=== PATIENT | male | born 1960 | race Caucasian/White ===

== ENCOUNTER 2018-11-16 19:27 | Emergency (ER) | payer OTHER ==
--- NOTE | 2018-11-16 20:36 | RAD REPORT ---
EXAM DESCRIPTION: US - Extremity Venous Uni Ltd - 11/16/2018 8:22 pm CLINICAL HISTORY: PAIN Leg swelling and edema. COMPARISON: No comparisons FINDINGS: Left lower extremity venous system was interrogated with Doppler technique. Normal flow, c ompressibility and augmentation was noted. There is no DVT present. IMPRESSION: No evidence of left lower extremity deep venous thrombosis.
[2018-11-16 21:43] LABS: Absolute Lymphocytes (CBC) 1.9 K/uL (0.7-4.9); Absolute Monocytes 0.3 K/uL (0.1-1.3); Absolute Neutrophil 4.1 K/uL (1.8-8.0); Basophils % 0.4 % (0-1.3); Eosinophils % 2.3 % (0-4.4); Hematocrit 42.1 % (39.6-49.0); Lymphocytes % 28.8 % (15.3-44.8); RBC Red Blood Cell Count 4.59 M/uL (4.33-5.43)
[2018-11-16 22:00] LABS: Albumin 4.1 g/dL (3.4-5.0); Bilirubin Direct 0.2 mg/dL (0-0.2); Bilirubin Total 0.6 mg/dL (0.2-1.0); Protein, Total 7.3 g/dL (6.4-8.2)
--- NOTE | 2018-11-16 22:05 | EDPHYS ---
Physician Documentation [facility] Name: Angel Hui Age: 58 yrs Sex: Male : 1960 Arrival Date: 11/16/2018 Time: 19:31 Bed 25 Private MD: ED Physician Gerardo Son HPI: 11/16 20:41 This 58 yrs old Male presents to ER via Ambulatory with complaints of Leg jmm Pain - possible blood clot. 20:41 The patient presents with pain, that is acute. Onset: The symptoms/episode jmm began/occurred gradually, 2 day(s) ago. Modifying factors: The symptoms are alleviated by nothing. the symptoms are aggravated by nothing. This is a 58 year old male with a history of DVT, HTN presents to the ED with bruising and pain to his left thigh. Patient states that he felt a pain in his leg and then noticed bruising in the area. Patient denies chest pain or shortness of breath. . Historical: - Allergies: 20:00 PENICILLINS; aj1 - Home Meds: 20:00 losartan oral oral [Active]; pantoprazole oral oral [Active]; Aspirin Oral [Active]; aj1 Flonase Nasal [Active]; - PMHx: 20:00 PE; Hypertension; aj1 - PSHx: 20:00 Knee surgery; aj1 - Immunization history:: Flu vaccine is not up to date. - Social history:: Smoking status: Patient uses tobacco products, smokes one-half pack cigarettes per day. - Ebola Screening: : Patient denies travel to an Ebola-affected area in the 21 days before illness onset. ROS: 20:41 Constitutional: Negative for fever, chills, and weight loss, Cardiovascular: Negative jmm for chest pain, palpitations, and edema, Respiratory: Negative for shortness of breath, cough, wheezing, and pleuritic chest pain. 20:41 MS/extremity: Positive for pain. 20:41 Skin: Positive for ecchymosis. 20:41 All other systems are negative. Exam: 20:41 Constitutional: This is a well developed, well nourished patient who is awake, alert, jmm and in no acute distress. Head/Face: atraumatic. Eyes: EOMI, no conjunctival erythema appreciated ENT: Moist Mucus Membranes Neck: Trachea midline, Supple Chest/axilla: Normal chest wall appearance and motion. Cardiovascular: Regular rate and rhythm. No edema appreciated Respiratory: Normal respirations, no respiratory distress appreciated Abdomen/GI: Non distended, soft 20:41 Musculoskeletal/extremity: ecchymosis noted to the left thigh, no swelling is appreciated, compartments are soft, NVI. 20:41 Skin: ecchymosis noted to the left medial thigh, no erythema or induration is appreciated. 20:41 Neuro: Orientation: is normal, Mentation: is normal, Memory: is normal, Gait: is steady. 20:41 Psych: Behavior/mood is pleasant, cooperative. Vital Signs: 20:00 BP 131 / 82; Pulse 70; Resp 18; Temp 97.8; Pulse Ox 96% on R/A; Weight 125.19 kg (R); aj1 Height 6 ft. 0 in. (182.88 cm) (R); Pain 0/10; 21:35 BP 113 / 69; Pulse 58; Resp 18; Pulse Ox 97% on R/A; tl3 20:00 Body Mass Index 37.43 (125.19 kg, 182.88 cm) [facility] MDM: 20:41 Patient medically screened. [facility] 22:01 Data reviewed: vital signs, nurses notes. Counseling: I had a detailed discussion with [facility] the patient and/or guardian regarding: the historical points, exam findings, and any diagnostic results supporting the discharge/admit diagnosis, lab results, radiology results, the need for outpatient follow up, to return to the emergency department if symptoms worsen or persist or if there are any questions or concerns that arise at home. ED course: Patient is alert, non toxic in appearance, no signs of resp distress. Patient denies chest pain. I do not suspect PE at this time. US negative. CBC normal. I do not suspect cellulitis. Patient is advised to follow up with PCP and otherwise advised to return to the ED if he develops any worsening or concerning symptoms. I discussed this with the patient whom agree with the plan of care. . 11/16 20:59 Order name: CBC with Diff; Complete Time: 21:49 [facility] 11/16 20:59 Order name: BMP; Complete Time: 22:01 [facility] 11/16 20:01 Order name: US Extremity Venous Unilateral Ltd; Complete Time: 20:41 [facility] 11/16 21:08 Order name: Hepatic Function; Complete Time: 22: saniya Administered Medications: No medications were administered Disposition: 11/16/18 22:04 Discharged to Home. Impression: Contusion of left thigh. - Condition is Stable. - Discharge Instructions: Contusion. - Medication Reconciliation Form, Thank You Letter, Antibiotic Education, Prescription Opioid Use form. - Follow up: Private Physician; When: 1 - 2 days; Reason: Recheck today's complaints, Continuance of care, Re-evaluation by your physician. Addendum: 11/19/2018 09:00 Co-signature as Attending Physician, Gerardo Son MD I agree with the assessment and c mcdonald plan of care. Signatures: Dispatcher [employer] EDTata Ragland RN RN aj1 Gerardo Son MD MD cha Mickail, Joel, PA PA jmm Lowrey, Tammy, RN RN tl3 Corrections: (The following items were deleted from the chart) 11/16 22:20 22:04 11/16/2018 22:04 Discharged to Home. Impression: Contusion of left thigh. tl3 Condition is Stable. Forms are Medication Reconciliation Form, Thank You Letter, Antibiotic Education, Prescription Opioid Use. Follow up: Private Physician; When: 1 - 2 days; Reason: Recheck today's complaints, Continuance of care, Re-evaluation by your physician. saniya
--- NOTE | 2018-11-16 22:05 | ER ---
Nurse's Notes [facility] Name: Angel Hui Age: 58 yrs Sex: Male : 1960 Arrival Date: 11/16/2018 Time: 19:31 Bed 25 Private MD: Diagnosis: Contusion of left thigh Presentation: 11/16 19:57 Presenting complaint: Patient states: "I had what felt like a leg cramp a couple of aj1 night ago, and the next morning I had a very large, it looks like a bruise on my thigh, and my bowels have been very sporadic". Transition of care: patient was not received from another setting of care. Onset of symptoms was November 14, 2017. Risk Assessment: Do you want to hurt yourself or someone else? Patient reports no desire to harm self or others. Initial Sepsis Screen: Does the patient meet any 2 criteria? No. Patient's initial sepsis screen is negative. Does the patient have a suspected source of infection? No. Patient's initial sepsis screen is negative. Care prior to arrival: None. 19:57 Method Of Arrival: Ambulatory aj1 19:57 Acuity: SAKINA 3 aj1 Triage Assessment: 20:00 General: Appears in no apparent distress. comfortable, Behavior is calm, cooperative, aj1 appropriate for age. Pain: Denies pain. Neuro: Level of Consciousness is awake, alert, obeys commands. Cardiovascular: Patient's skin is warm and dry. Respiratory: Airway is patent Respiratory effort is even, unlabored, Respiratory pattern is regular, symmetrical. Historical: - Allergies: 20:00 PENICILLINS; aj1 - Home Meds: 20:00 losartan oral oral [Active]; pantoprazole oral oral [Active]; Aspirin Oral [Active]; aj1 Flonase Nasal [Active]; - PMHx: 20:00 PE; Hypertension; aj1 - PSHx: 20:00 Knee surgery; aj1 - Immunization history:: Flu vaccine is not up to date. - Social history:: Smoking status: Patient uses tobacco products, smokes one-half pack cigarettes per day. - Ebola Screening: : Patient denies travel to an Ebola-affected area in the 21 days before illness onset. Screenin:20 Abuse screen: Denies threats or abuse. Nutritional screening: No deficits noted. tl3 Tuberculosis screening: No symptoms or risk factors identified. Fall Risk None identified. Assessment: 21:20 Reassessment: pt reports that he had a leg cramp on Monday then noticed a large bruise tl3 on Mon, no known injury. General: Appears in no apparent distress. comfortable, slender, well groomed, well developed, well nourished, Behavior is calm, cooperative, appropriate for age. Pain: Complains of pain in left quadriceps. Neuro: Level of Consciousness is awake. Cardiovascular: Patient's skin is warm and dry. Respiratory: Airway is patent Respiratory effort is even, unlabored, Respiratory pattern is regular, symmetrical. GI: No signs and/or symptoms were reported involving the gastrointestinal system. : No signs and/or symptoms were reported regarding the genitourinary system. EENT: No signs and/or symptoms were reported regarding the EENT system. Derm: No signs and/or symptoms reported regarding the dermatologic system. Musculoskeletal: No signs and/or symptoms reported regarding the musculoskeletal system. 21:35 Reassessment: Patient appears in no apparent distress at this time. No changes from tl3 previously documented assessment. Patient and/or family updated on plan of care and expected duration. Pain level reassessed. Patient is alert, oriented x 3, equal unlabored respirations, skin warm/dry/pink. blood drawn with a 23g butterfly from LAC, pt tolerated well. Blankets offered, lights dimmed and pt informed of approximate wait time for lab results. Vital Signs: 20:00 BP 131 / 82; Pulse 70; Resp 18; Temp 97.8; Pulse Ox 96% on R/A; Weight 125.19 kg (R); aj1 Height 6 ft. 0 in. (182.88 cm) (R); Pain 0/10; 21:35 BP 113 / 69; Pulse 58; Resp 18; Pulse Ox 97% on R/A; tl3 20:00 Body Mass Index 37.43 (125.19 kg, 182.88 cm) aj1 ED Course: 19:31 Patient arrived in ED. am2 19:58 Triage completed. aj1 20:00 Arm band placed on Patient placed in waiting room, Patient notified of wait time. aj1 20:21 Ultrasound completed. Patient tolerated well. sg3 20:23 US Extremity Venous Unilateral Ltd In Process Unspecified. EDMS 20:25 Napoleon Varghese PA is PHCP. [facility] 20:25 Gerardo Son MD is Attending Physician. [facility] 21:02 Tracey Patel, RN is Primary Nurse. tl3 21:20 Patient has correct armband on for positive identification. Bed in low position. Call tl3 light in reach. Side rails up X 1. 21:20 No provider procedures requiring assistance completed. tl3 Administered Medications: No medications were administered Outcome: 22:04 Discharge ordered by . [facility] 22:20 Patient left the ED. tl3 Signatures: Dispatcher [employer] EDMS Tata Belcher, RN RN aj1 Napoleon Varghese PA PA Katherine Knox am2 Yaquelin Aiken sg3 Tracey Patel, RN RN tl3
== END 2018-11-16 22:20 | disposition home or self-care (01) ==
LOC: ER 19:27
DX: S70.12XA Contusion of left thigh, initial encounter (principal); I10 Essential (primary) hypertension; Z86.718 Personal history of other venous thrombosis and embolism; Z88.0 Allergy status to penicillin; Z79.82 Long term (current) use of aspirin; Z79.51 Long term (current) use of inhaled steroids; Z86.711 Personal history of pulmonary embolism
CPT/HCPCS: 36415; 80048; 80076; 85025; 93971; 99282